=== PATIENT | male | born 1945 | race Caucasian/White ===

== ENCOUNTER → 2017-03-12 | Outpatient (CLI) | payer MEDICARE ==
[~2017-03-12] MED LIST: AMLO5TAB2 PO; APIX5TAB PO; ASPI-555 PO; CHOL100040 PO; DONE5TAB33 PO; GLIM4TAB3 PO; HYDR25TA PO; METF10004 PO; QUIN40TA19 PO; RANI150T7 PO; ROPI1TAB11 PO; SIMV10TA6 PO; SIMV40TA59 PO; SOTA80TA PO; UBID100C10 PO; VENL75TA89 PO
== END | disposition home or self-care (01) ==
LOC: RAH 08:44
PROVIDERS: ATTEND Internal Medicine Gastroenterology
DX: K21.9 Gastro-esophageal reflux disease without esophagitis (principal); K22.4 Dyskinesia of esophagus
CPT/HCPCS: 74220

== ENCOUNTER 2017-04-05 15:58 | Emergency (ER) | payer MEDICARE ==
[~2017-04-05 15:58] MED LIST changes: -AMLO5TAB2 PO
[2017-05-06] MEDS ORDERED: AMLO5TAB2 PO (13:28)
[2017-05-06] MEDS ORDERED: SIMV10TA6 PO (13:28)
== END 2017-04-05 17:03 | disposition home or self-care (01) ==
LOC: EDH 15:58
DX: S61.210A Laceration without foreign body of right index finger without damage to nail, initial encounter (principal); I10 Essential (primary) hypertension; E11.9 Type 2 diabetes mellitus without complications; E78.5 Hyperlipidemia, unspecified; I48.91 Unspecified atrial fibrillation; W29.8XXA Contact with other powered hand tools and household machinery, initial encounter; Y93.89 Activity, other specified; Y92.098 Other place in other non-institutional residence as the place of occurrence of the external cause; Y99.8 Other external cause status
CPT/HCPCS: 12001

== ENCOUNTER 2017-04-08 21:35 | Emergency (ER) | payer MEDICARE ==
[2017-04-08] MEDS ORDERED: CEFTRIAXONE SODIUM 1 GM ONE (23:38)
[2017-04-08] MEDS ORDERED: LIDOCAINE HCL-MPF 1% 2ML VIAL ONE (23:38)
[2017-05-06] MEDS ORDERED: AMLO5TAB2 PO (13:28)
[2017-05-06] MEDS ORDERED: SIMV10TA6 PO (13:28)
== END 2017-04-09 00:14 | disposition home or self-care (01) ==
LOC: EDH 21:35
DX: L03.011 Cellulitis of right finger (principal); E78.5 Hyperlipidemia, unspecified; I10 Essential (primary) hypertension; I48.91 Unspecified atrial fibrillation; E11.9 Type 2 diabetes mellitus without complications; Z85.46 Personal history of malignant neoplasm of prostate
CPT/HCPCS: 73140; 96372; 99284; J0696; J3490

== ENCOUNTER 2017-05-15 06:50 | Day surgery (SDC) | payer MEDICARE ==
[~2017-05-15] VITALS: Ht 180.3 cm; Wt 98.4 kg
[~2017-05-15 06:50] MED LIST changes: +AMLO5TAB2 PO; +BOTULINUM TOXIN TYPE A 100 UNITS/VIAL INJ SCH; -RANI150T7 PO; -SIMV40TA59 PO; +SODIUM CHLORIDE 0.9% 1000ML 1,000 ML IV ONE
[2017-05-15 07:31] VITALS: BP 179/83
[2017-05-15] MEDS ORDERED: PROPOFOL 10 MG/ML 20ML VIAL IV ONE ×2 (08:12)
[2017-05-15 08:27] VITALS: BP 122/61
== END 2017-05-15 09:08 | disposition home or self-care (01) ==
LOC: ENDO 06:50 → DAH 06:56 → ENDO 09:08
PROVIDERS: ATTEND Internal Medicine Gastroenterology
DX: K22.4 Dyskinesia of esophagus (principal); Z98.84 Bariatric surgery status; K22.0 Achalasia of cardia; I25.10 Atherosclerotic heart disease of native coronary artery without angina pectoris; I35.0 Nonrheumatic aortic (valve) stenosis; Z95.1 Presence of aortocoronary bypass graft; I10 Essential (primary) hypertension; E11.9 Type 2 diabetes mellitus without complications; Z68.31 Body mass index [BMI] 31.0-31.9, adult; Z79.899 Other long term (current) drug therapy; Z79.84 Long term (current) use of oral hypoglycemic drugs; Z79.4 Long term (current) use of insulin
CPT/HCPCS: 43236; 72220; 82948 ×2; 93005; A4606; J0585; J2704 ×2; J7030 ×2

== ENCOUNTER → 2018-06-18 | Outpatient (CLI) | payer MEDICARE ==
[~2018-06-18] MED LIST changes: -AMLO5TAB2 PO; +AMLO5TAB9 PO; -BOTULINUM TOXIN TYPE A 100 UNITS/VIAL INJ SCH; +METF-446 PO; -METF10004 PO; -SODIUM CHLORIDE 0.9% 1000ML 1,000 ML IV ONE
== END | disposition home or self-care (01) ==
LOC: RAH 08:38
PROVIDERS: ATTEND Internal Medicine Gastroenterology
DX: K21.9 Gastro-esophageal reflux disease without esophagitis (principal)
CPT/HCPCS: 74240

== ENCOUNTER 2018-08-25 06:09 | Day surgery (SDC) | payer MEDICARE ==
[~2018-08-25] VITALS: Ht 177.8 cm; Wt 88.9 kg
[~2018-08-25 06:09] MED LIST changes: +SODIUM CHLORIDE 0.9% 1000ML 1,000 ML IV ONE
[2018-08-25 06:50] VITALS: BP 166/67
[2018-08-25] MEDS ORDERED: GLYCOPYRROLATE 0.2 MG/ML 5 ML VIAL ONE (08:08)
[2018-08-25] MEDS ORDERED: PROPOFOL 10 MG/ML 20ML VIAL IV ONE (08:18)
[2018-08-25] MEDS ORDERED: EPHEDRINE SULFATE 50 MG/ML AMPULE ONE (08:19)
[2018-08-25 08:26] VITALS: BP 106/55
[2018-08-25 08:31] VITALS: BP 130/67
[2018-08-25 08:37] VITALS: BP 134/52
[2018-08-25 08:45] VITALS: BP 140/76
== END 2018-08-25 09:00 | disposition home or self-care (01) ==
LOC: DAH 06:09
PROVIDERS: ATTEND Internal Medicine Gastroenterology
DX: D12.3 Benign neoplasm of transverse colon (principal); K63.5 Polyp of colon; K57.30 Diverticulosis of large intestine without perforation or abscess without bleeding; I10 Essential (primary) hypertension; E11.9 Type 2 diabetes mellitus without complications; F32.9 Major depressive disorder, single episode, unspecified; K21.9 Gastro-esophageal reflux disease without esophagitis; I48.91 Unspecified atrial fibrillation; Z79.84 Long term (current) use of oral hypoglycemic drugs; Z79.82 Long term (current) use of aspirin; Z79.899 Other long term (current) drug therapy; Z98.84 Bariatric surgery status; Z98.890 Other specified postprocedural states; Z85.46 Personal history of malignant neoplasm of prostate; Z98.49 Cataract extraction status, unspecified eye; Z96.659 Presence of unspecified artificial knee joint; Z79.01 Long term (current) use of anticoagulants; Z82.5 Family history of asthma and other chronic lower respiratory diseases; Z83.3 Family history of diabetes mellitus; Z82.49 Family history of ischemic heart disease and other diseases of the circulatory system
CPT/HCPCS: 45380; 45385; 82948 ×2; 88305; 93005; A4606; J2704; J3490 ×2; J7030; 44389

== ENCOUNTER 2019-03-12 15:02 | Emergency (ER) | payer MEDICARE ==
[~2019-03-12 15:02] MED LIST changes: -GLIM4TAB3 PO; +GLIM4TAB36 PO; -SIMV10TA6 PO; +SIMV10TA97 PO; -SODIUM CHLORIDE 0.9% 1000ML 1,000 ML IV ONE
[2019-03-12] MEDS ORDERED: LIDOCAINE HCL 1% 20 ML VIAL ONE (15:46)
== END 2019-03-12 16:50 | disposition home or self-care (01) ==
LOC: EDH 15:02
DX: S61.213A Laceration without foreign body of left middle finger without damage to nail, initial encounter (principal); I48.91 Unspecified atrial fibrillation; E11.9 Type 2 diabetes mellitus without complications; E78.5 Hyperlipidemia, unspecified; I10 Essential (primary) hypertension; W01.198A Fall on same level from slipping, tripping and stumbling with subsequent striking against other object, initial encounter; Y93.89 Activity, other specified; Y92.59 Other trade areas as the place of occurrence of the external cause; Y99.8 Other external cause status
CPT/HCPCS: 12042; 73140

== ENCOUNTER 2019-03-19 10:34 | Emergency (ER) | payer MEDICARE ==
[2019-03-19 11:31] LABS: BASOPHILS % (AUTO) 0.7 % (0.0-5.0); EOSINOPHILS % (AUTO) 3.7 % (0.0-8.0); HEMATOCRIT 33.6 % (42-54); LYMPHOCYTES % (AUTO) 12.8 % (21.0-51.0); MEAN CORPUSCULAR HEMOGLOBIN 30.1 pg (27.0-33.0); MEAN CORPUSCULAR HGB CONC 32.7 g/dL (32.0-36.0); MEAN CORPUSCULAR VOLUME 92.1 fL (79-99); MONOCYTES % (AUTO) 6.4 % (3.0-13.0); NEUTROPHILS % (AUTO) 75.7 % (40.0-77.0); PLATELET COUNT (AUTO) 213 K/uL (130-400); RED BLOOD CELL COUNT(AUTO) 3.65 MIL/uL (4.50-6.20); RED CELL DISTRIBUTION WIDTH 13.5 % (11.0-15.5)
[2019-03-19 12:18] LABS: CREATININE 1.8 mg/dL (0.5-1.5); POTASSIUM 4.1 mmol/L (3.5-5.1)
[2019-03-19 12:22] LABS: ALBUMIN 3.6 g/dL (3.5-5.0); BILIRUBIN,TOTAL 0.5 mg/dL (0.2-1.0); TOTAL PROTEIN, SERUM 6.2 g/dL (6.0-8.3)
== END 2019-03-19 13:54 | disposition home or self-care (01) ==
LOC: EDH 10:34
DX: K57.30 Diverticulosis of large intestine without perforation or abscess without bleeding (principal); E11.9 Type 2 diabetes mellitus without complications; I10 Essential (primary) hypertension; E78.5 Hyperlipidemia, unspecified; Z98.890 Other specified postprocedural states
CPT/HCPCS: 36415; 74176; 80053; 85025

== ENCOUNTER → 2020-05-07 | Outpatient (CLI) | payer MEDICARE ==
[~2020-05-07] MED LIST changes: +AMLO-257 PO; -AMLO5TAB9 PO; -ASPI-555 PO; +ASPI-556 PO; -ROPI1TAB11 PO; +ROPI1TAB13 PO
== END | disposition home or self-care (01) ==
LOC: RAH 14:26
PROVIDERS: ATTEND Family Medicine
DX: R68.89 Other general symptoms and signs (principal)
CPT/HCPCS: 70450

== ENCOUNTER 2021-03-12 23:18 | Inpatient (IN) | payer MEDICARE ==
[~2021-03-12] VITALS: Ht 177.8 cm; Wt 83.9 kg
[2021-03-13 00:28] LABS: BASOPHILS % (AUTO) 0.4 % (0.0-5.0); EOSINOPHILS % (AUTO) 1.7 % (0.0-8.0); HEMATOCRIT 26.3 % (42-54); INR 1.21 (0.85-1.15); LYMPHOCYTES % (AUTO) 12.8 % (21.0-51.0); MEAN CORPUSCULAR HEMOGLOBIN 25.9 pg (27.0-33.0); MEAN CORPUSCULAR HGB CONC 30.8 g/dL (32.0-36.0); MONOCYTES % (AUTO) 8.7 % (3.0-13.0); NEUTROPHILS % (AUTO) 75.7 % (40.0-77.0); PLATELET COUNT (AUTO) 227 K/uL (130-400); RED BLOOD CELL COUNT(AUTO) 3.13 MIL/uL (4.50-6.20); RED CELL DISTRIBUTION WIDTH 15.1 % (11.0-15.5)
[2021-03-13 00:30] LABS: PARTIAL THROMBOPLASTIN TIME 30.9 SEC (26.3-35.5)
[2021-03-13] MEDS ORDERED: DILTIAZEM 125 MG/25 ML INJ 125 MG in 0.9%NACL 100ML 100 ML IV SCH (00:30)
[2021-03-13 00:35] LABS: CREATININE 2.2 mg/dL (0.5-1.5)
[2021-03-13 00:39] LABS: B-TYPE NATRIURETIC PEPTIDE 130 pg/mL (0-100)
[2021-03-13 00:40] LABS: BILIRUBIN,TOTAL 0.2 mg/dL (0.2-1.0); TOTAL PROTEIN, SERUM 6.5 g/dL (6.0-8.3)
[2021-03-13 01:00] LABS: DIGOXIN 1.12 ng/mL (0.50-2.00); MAGNESIUM 2.1 mg/dL (1.80-2.40)
[2021-03-13] MEDS ORDERED: 0.9%NACL 100ML 100 ML ONE (01:26)
[2021-03-13] MEDS ORDERED: MEMA10TA55 PO (01:41)
[2021-03-13] MEDS ORDERED: ACETAMINOPHEN 325 MG TAB PO PRN (03:00)
[2021-03-13] MEDS ORDERED: ONDANSETRON 4MG INJ IV PRN (03:00)
[2021-03-13] MEDS ORDERED: ACETAMINOPHEN WITH CODEINE 1 TAB TAB PO PRN (03:00)
[2021-03-13] MEDS ORDERED: DILTIAZEM 50MG VIAL IV ONE (06:46)
[2021-03-13 06:54] LABS: MEAN CORPUSCULAR HEMOGLOBIN 25.5 pg (27.0-33.0); MEAN CORPUSCULAR HGB CONC 30.7 g/dL (32.0-36.0); MEAN CORPUSCULAR VOLUME 83.1 fL (79-99); RED BLOOD CELL COUNT(AUTO) 3.25 MIL/uL (4.50-6.20); RED CELL DISTRIBUTION WIDTH 14.9 % (11.0-15.5); WHITE BLOOD COUNT (AUTO) 5.8 K/uL (4.8-10.8)
[2021-03-13 07:07] LABS: CREATININE 1.7 mg/dL (0.5-1.5); MAGNESIUM 1.9 mg/dL (1.80-2.40); PHOSPHORUS 4.6 mg/dL (2.5-4.9); POTASSIUM 3.6 mmol/L (3.5-5.1)
[2021-03-13 07:17] LABS: % IRON SATURATION 5.2 % (30-44)
[2021-03-13] MEDS: DIGOXIN 125 MCG TABLET PO SCH (10:11)
[2021-03-13] MEDS: APIXABAN 5 MG TABLET PO SCH ×2 (10:11→20:47)
[2021-03-13] MEDS: SOTALOL HCL 80 MG TABLET PO SCH ×2 (10:11→20:47)
[2021-03-13] MEDS: PANTOPRAZOLE 40 MG TAB DR PO SCH (10:12)
[2021-03-13 18:57] VITALS: BP 112/71
[2021-03-13 23:39] VITALS: BP 121/73
[2021-03-14 03:26] VITALS: BP 146/77
[2021-03-14 03:57] LABS: BASOPHILS % (AUTO) 0.7 % (0.0-5.0); EOSINOPHILS % (AUTO) 3.1 % (0.0-8.0); HEMATOCRIT 28.1 % (42-54); LYMPHOCYTES % (AUTO) 22.5 % (21.0-51.0); MEAN CORPUSCULAR HEMOGLOBIN 25.7 pg (27.0-33.0); MEAN CORPUSCULAR HGB CONC 30.2 g/dL (32.0-36.0); MEAN CORPUSCULAR VOLUME 84.9 fL (79-99); MONOCYTES % (AUTO) 7.2 % (3.0-13.0); NEUTROPHILS % (AUTO) 65.8 % (40.0-77.0); PLATELET COUNT (AUTO) 239 K/uL (130-400); RED BLOOD CELL COUNT(AUTO) 3.31 MIL/uL (4.50-6.20); RED CELL DISTRIBUTION WIDTH 14.9 % (11.0-15.5); WHITE BLOOD COUNT (AUTO) 5.4 K/uL (4.8-10.8)
[2021-03-14 04:33] LABS: ALBUMIN 2.8 g/dL (3.5-5.0); BILIRUBIN,TOTAL 0.3 mg/dL (0.2-1.0); CREATININE 1.7 mg/dL (0.5-1.5); TOTAL PROTEIN, SERUM 6.3 g/dL (6.0-8.3)
[2021-03-14 08:00] VITALS: BP 152/92
[2021-03-14] MEDS: SOTALOL HCL 80 MG TABLET PO SCH ×2 (08:57→20:52)
[2021-03-14] MEDS: APIXABAN 5 MG TABLET PO SCH (08:57)
[2021-03-14] MEDS: DIGOXIN 125 MCG TABLET PO SCH (08:58)
[2021-03-14] MEDS: PANTOPRAZOLE 40 MG TAB DR PO SCH (08:58)
[2021-03-14 11:27] VITALS: BP 105/75
[2021-03-14 16:00] VITALS: BP 132/84
[2021-03-14 19:08] VITALS: BP 133/77
[2021-03-14] MEDS: APIXABAN 2.5 MG TABLET PO SCH (20:52)
[2021-03-14] MEDS ORDERED: DIGO125T71 PO (21:11)
[2021-03-14 23:10] VITALS: BP 133/90
[2021-03-15] MEDS ORDERED: APIX2.5T PO (00:34)
[2021-03-15 03:40] LABS: BASOPHILS % (AUTO) 0.6 % (0.0-5.0); MEAN CORPUSCULAR HEMOGLOBIN 26.1 pg (27.0-33.0); MEAN CORPUSCULAR HGB CONC 31.9 g/dL (32.0-36.0); MEAN CORPUSCULAR VOLUME 82.1 fL (79-99); MONOCYTES % (AUTO) 6.6 % (3.0-13.0); NEUTROPHILS % (AUTO) 70.9 % (40.0-77.0); PLATELET COUNT (AUTO) 244 K/uL (130-400); RED BLOOD CELL COUNT(AUTO) 3.29 MIL/uL (4.50-6.20); RED CELL DISTRIBUTION WIDTH 14.6 % (11.0-15.5); WHITE BLOOD COUNT (AUTO) 6.6 K/uL (4.8-10.8)
[2021-03-15 04:37] LABS: ALBUMIN 2.7 g/dL (3.5-5.0); BILIRUBIN,TOTAL 0.2 mg/dL (0.2-1.0); CREATININE 1.7 mg/dL (0.5-1.5); DIGOXIN 1.46 ng/mL (0.50-2.00); POTASSIUM 4.2 mmol/L (3.5-5.1); TOTAL PROTEIN, SERUM 6.1 g/dL (6.0-8.3)
[2021-03-15 06:46] VITALS: BP 121/77
[2021-03-15 08:12] VITALS: BP 125/68
[2021-03-15] MEDS: PANTOPRAZOLE 40 MG TAB DR PO SCH (09:49)
[2021-03-15] MEDS: APIXABAN 2.5 MG TABLET PO SCH (09:50)
[2021-03-15] MEDS: SOTALOL HCL 80 MG TABLET PO SCH (09:50)
[2021-03-15] MEDS: DIGOXIN 125 MCG TABLET PO SCH (09:51)
== END 2021-03-15 11:45 | disposition home or self-care (01) | DRG 309 ==
LOC: EDH 23:18 → EDHIP 03-13 01:41 → OBSVTOIN 03-13 01:41 → 2DH 03-13 18:42
PROVIDERS: ADMIT Internal Medicine Pulmonary Disease; ATTEND Internal Medicine Pulmonary Disease
DX: I48.20 Chronic atrial fibrillation, unspecified (principal); G93.40 Encephalopathy, unspecified; N18.30 Chronic kidney disease, stage 3 unspecified; F03.90 Unspecified dementia, unspecified severity, without behavioral disturbance, psychotic disturbance, mood disturbance, and anxiety; E11.22 Type 2 diabetes mellitus with diabetic chronic kidney disease; I12.9 Hypertensive chronic kidney disease with stage 1 through stage 4 chronic kidney disease, or unspecified chronic kidney disease; E78.5 Hyperlipidemia, unspecified; D50.9 Iron deficiency anemia, unspecified; Z20.822 Contact with and (suspected) exposure to COVID-19; I25.10 Atherosclerotic heart disease of native coronary artery without angina pectoris; N28.1 Cyst of kidney, acquired; E78.00 Pure hypercholesterolemia, unspecified; K76.89 Other specified diseases of liver; Z98.84 Bariatric surgery status; I25.2 Old myocardial infarction; Z95.2 Presence of prosthetic heart valve; Z95.1 Presence of aortocoronary bypass graft; Z79.01 Long term (current) use of anticoagulants; Z79.84 Long term (current) use of oral hypoglycemic drugs; Z85.46 Personal history of malignant neoplasm of prostate; Z87.440 Personal history of urinary (tract) infections
CPT/HCPCS: 36415; 70450; 71045; 72125; 74176; 80048; 80053; 80162; 82550; 82728; 82948; 83540; 83550; 83605; 83735; 83880; 84100; 84145; 84484; 85025; 85027; 85610; 85730; 87040; 87635; 87804; 93005; 97039; C9803; G0378; J3490